=== PATIENT | female | born 1950 | race Caucasian/White ===

== ENCOUNTER 2020-06-03 08:37 | Outpatient (NON) | payer MEDICARE, SELFPAY ==
[2020-06-03 19:00] LABS: SARS-CoV-2 RNA PCR Negative
== END 2020-06-03 08:38 ==
PROVIDERS: PCP Internal Medicine; Visit Provider Internal Medicine
DX: Z20.828 Contact with and (suspected) exposure to other viral communicable diseases (principal); R05 Cough
CPT/HCPCS: 87635; C9803; U0003

== ENCOUNTER → 2021-09-15 02:42 | Outpatient (CLI) | payer MEDICARE, SELFPAY ==
[2021-09-15 15:25] LABS: Influenza A QL RT-PCR Negative (Negative); Influenza B QL RT-PCR Negative (Negative); SARS-CoV-2 RNA PCR Negative
== END ==
PROVIDERS: PCP Internal Medicine; Visit Provider Internal Medicine
DX: R68.89 Other general symptoms and signs (principal); Z20.822 Contact with and (suspected) exposure to COVID-19
CPT/HCPCS: 87502; C9803; U0003; U0005

== ENCOUNTER → 2022-10-11 10:15 | Outpatient (CLI) | payer MEDICARE, SELFPAY ==
--- NOTE | ~2022-10-11 | XR_ITS ---
XR hip RT min 2V 10/11/2022 10:29 Indication: Right hip pain. No acute injury. Procedure: 2 views right hip Comparison: No prior studies for comparison. Findings: There is moderate osteoarthritis of the right hip. No fracture, subluxation or dislocation. There are pelvic phleboliths. No foreign bodies. Impression: 1: Moderate osteoarthritis of the right hip. Reviewed, dictated and finalized at location B. MOTIVE TEACHER Impression: 1: Moderate osteoarthritis of the right hip.
== END ==
PROVIDERS: PCP Family Medicine; Visit Provider Family Medicine
DX: M25.551 Pain in right hip (principal); M16.11 Unilateral primary osteoarthritis, right hip
CPT/HCPCS: 73502

== ENCOUNTER 2022-12-15 00:42 | Day surgery (SDC) | payer MEDICARE, SELFPAY ==
--- NOTE | 2022-12-14 12:00 | WPDANESEPPF ---
Anes - Initial Pre Proc Eval Procedure: Operation Date: 12/15/22 08:30 Proposed Procedures p Screening Colonoscopy - Ino Coronado MD Date/Time: 12/14/22 12:00 Surgeon: Ino Coronado MD Pre Op Diagnosis: neoplasm screening Patient Data Age: 72 Gender: F Height: 1.65 m Weight: 54.5 kg Allergies Allergy/AdvReac Type Severity Reaction Status Date / Time No Known Allergies Allergy Verified 12/15/22 07:24 Home Medications Medication Instructions Recorded Confirmed Type tretinoin 0.1 % topical cream 1 applic topical QHS #45 grams 10/08/21 12/15/22 Rx lovastatin 20 mg tablet 20 mg PO QPM #90 tabs 01/07/22 12/15/22 Rx bimatoprost 0.03 % eye drops 1 drp EACH EYE DAILY #5 mL 06/11/22 12/15/22 Rx doxycycline monohydrate 50 mg 50 mg PO DAILY #90 caps 09/06/22 12/15/22 Rx capsule sumatriptan succinate 100 mg tablet 100 mg PO ONCE PRN Migraine 10/11/22 12/15/22 History Headache cholecalciferol (vitamin D3) 25 25 mcg PO DAILY 10/25/22 12/15/22 History mcg (1,000 unit) tablet (Vitamin D3) dicyclomine 10 mg capsule 10 mg PO TID PRN Abdominal Pain 10/25/22 12/15/22 History multivitamin with minerals-folic 1 tablet PO DAILY 10/25/22 12/15/22 History acid 0.4 mg tablet sennosides 8.6 mg tablet (senna) 8.6 mg PO BID 10/25/22 12/15/22 History Patient hx anesthesia problems: none Family hx anesthesia problems: none Results Review: All pre-operative results and documents have been reviewed as part of the pre-operative evaluation. [facility] Past Medical History Medical History Hyperlipidemia LDL goal <130 Postmenopausal Surgical History Surgical History History of tonsillectomy History of tubal ligation Family History Family History Sibling Patient's sister is in good health Family history of cardiovascular disease Father Family history of lung cancer Mother Family history of lung cancer Other , Patient son, possible stomach anuerysm. No problems noted. Social History Social History Smoking status: Never smoker Alcohol intake: current Alcohol use details: occasional Substance use: never Substance use type: does not use Lack of Transportation: No Lack of Food: Never True Current Housing: I Have Housing Concerned About Future Housing: No Difficulty Paying Gas/Electric Bills: No Difficulty Paying for Meds: No Currently Unemployed: No Education: Master's Degree or Higher Difficulty w/ Childcare or Family Care: No Living arrangements: with family Gender identity (if verbalized by the patient): Female Spiritual care concerns: No Anes - Eval Final PreProcedure Day of Procedure 12/14/22 12:00 Patient weight: normal Heart: regular rate and rhythm Lungs: clear to auscultation and normal air movement Airway: Mallampati scale class II Neurological: alert and oriented Last oral intake: >/= 8 hours ASA classification: II Emergent: no Anesthetic plan: proceed Anesthesia type and monitoring: general GIVS and standard monitoring Results Review: All pre-operative results and documents have been reviewed as part of the pre-operative evaluation. Informed Consent: The patient's anesthetic plan and its attendant risks and benefits were discussed with the patient/family/POA. Questions were solicited and answers provided to the satisfaction of the patient/family/POA.
--- NOTE | 2022-12-14 15:24 | PM.HPGS ---
History of Present Illness History of Present Illness Consent: Risks, benefits, and alternatives have been discussed and questions answered. Patient agrees to proceed with procedure. Chief complaint: neoplasm screening Narrative: Umm Rodriguez is a 72 year old female who was referred for colon cancer screening. I performed her last colonoscopy 10 years ago. Review of Systems Review of Systems: All systems reviewed & are unremarkable except as noted in HPI and below PMFSH Past Medical History Medical History Hyperlipidemia LDL goal <130 Postmenopausal Surgical History Surgical History History of tonsillectomy History of tubal ligation Family History Family History Sibling Patient's sister is in good health Family history of cardiovascular disease Father Family history of lung cancer Mother Family history of lung cancer Other , Patient son, possible stomach anuerysm. No problems noted. Social History Social History Smoking status: Never smoker Alcohol intake: current Alcohol use details: occasional Substance use: never Substance use type: does not use Lack of Transportation: No Lack of Food: Never True Current Housing: I Have Housing Concerned About Future Housing: No Difficulty Paying Gas/Electric Bills: No Difficulty Paying for Meds: No Currently Unemployed: No Education: Master's Degree or Higher Difficulty w/ Childcare or Family Care: No Living arrangements: with family Gender identity (if verbalized by the patient): Female Spiritual care concerns: No Meds Home Medications and Allergies Home Medications Medication Instructions Recorded Confirmed Type tretinoin 0.1 % topical cream 1 applic topical QHS #45 grams 10/08/21 12/15/22 Rx lovastatin 20 mg tablet 20 mg PO QPM #90 tabs 01/07/22 12/15/22 Rx bimatoprost 0.03 % eye drops 1 drp EACH EYE DAILY #5 mL 06/11/22 12/15/22 Rx doxycycline monohydrate 50 mg 50 mg PO DAILY #90 caps 09/06/22 12/15/22 Rx capsule sumatriptan succinate 100 mg tablet 100 mg PO ONCE PRN Migraine 10/11/22 12/15/22 History Headache cholecalciferol (vitamin D3) 25 25 mcg PO DAILY 10/25/22 12/15/22 History mcg (1,000 unit) tablet (Vitamin D3) dicyclomine 10 mg capsule 10 mg PO TID PRN Abdominal Pain 10/25/22 12/15/22 History multivitamin with minerals-folic 1 tablet PO DAILY 10/25/22 12/15/22 History acid 0.4 mg tablet sennosides 8.6 mg tablet (senna) 8.6 mg PO BID 10/25/22 12/15/22 History Allergies Allergy/AdvReac Type Severity Reaction Status Date / Time No Known Allergies Allergy Verified 12/15/22 07:24 Exam Resp: Auscultation: clear to auscultation bilaterally Cardio: Rate: regular rate Rhythm: regular rhythm GI: GI Palp: Yes Soft to palpation and No Tenderness to palpation present (GI) Assessment and Plan Assessment and plan (1) Colon cancer screening: Code(s): Z12.11 - Encounter for screening for malignant neoplasm of colon Status: Acute Assessment and Plan: Colonoscopy with possible biopsy or polypectomy or cautery or injection of substances.
[2022-12-15 07:15] VITALS: BP 148/67; PULSE 62; RESP 16; TEMP 36.4; O2SAT 100; BMI 19.9
[2022-12-15] MEDS: LACTATED RINGERS 1,000 ML 150 ML IV CONT (07:37)
[2022-12-15 08:31] VITALS: BP 110/67; PULSE 63; RESP 19; O2SAT 100
[2022-12-15 08:41] VITALS: BP 120/64; PULSE 58; RESP 20; O2SAT 100
[2022-12-15 08:51] VITALS: BP 148/81; PULSE 54; RESP 19; O2SAT 100
== END 2022-12-15 09:02 | disposition home or self-care (01) ==
PROVIDERS: PCP Family Medicine; Visit Provider Internal Medicine Gastroenterology
PROC: 0DJD8ZZ Inspection of Lower Intestinal Tract, Via Natural or Artificial Opening Endoscopic (ICD-10-PCS; CPT 45378; principal; 2022-12-15 08:30)
DX: Z12.11 Encounter for screening for malignant neoplasm of colon (principal); K64.8 Other hemorrhoids; K63.89 Other specified diseases of intestine; E78.5 Hyperlipidemia, unspecified
CPT/HCPCS: G0121; J2704; J7120

== ENCOUNTER 2023-07-26 08:28 | Emergency (ER) | payer MEDICARE, SELFPAY ==
--- NOTE | ~2023-07-26 | XR_ITS ---
XR finger 2nd LT min 2V 07/26/2023 08:52 Indication: Left second finger pain Procedure: 4 views left second finger Comparison: No prior studies for comparison. Findings: No fracture, subluxation or dislocation. There is anatomic alignment. No focal soft tissue abnormality. No foreign bodies. Impression: 1: No acute bone or joint abnormality. Reviewed, dictated and finalized at location D. ME PLATER Impression: 1: No acute bone or joint abnormality.
[2023-07-26 08:39] VITALS: BP 159/80; PULSE 54; RESP 16; TEMP 36.6; O2SAT 100
--- NOTE | 2023-07-26 09:26 | ED.GENADULT ---
HPI - General Adult General Chief complaint: Extremity Injury, Upper Stated complaint: Injured Finger Source: patient Mode of arrival: ambulatory Limitations: no limitations History of Present Illness HPI narrative: Patient presents for evaluation of an injury to left index finger that occurred just under two weeks ago. She states she was using a hammer and accidentally hit her left index finger with the hammer. she reports swelling and discomfort to the left index finger. No numerical rating to the pain but states the pain is throbbing. She has a discoloration noted to the left index finger. She is right hand dominant. She tried taking tylenol and 1/2 tablet hydrocodone for her pain. Related Data Home Medications Medication Instructions Recorded Confirmed sumatriptan succinate 100 mg tablet 100 mg PO ONCE PRN Migraine 10/11/22 04/12/23 Headache cholecalciferol (vitamin D3) 25 25 mcg PO DAILY 10/25/22 04/12/23 mcg (1,000 unit) tablet (Vitamin D3) dicyclomine 10 mg capsule 10 mg PO TID PRN Abdominal Pain 10/25/22 04/12/23 multivitamin with minerals-folic 1 tablet PO DAILY 10/25/22 04/12/23 acid 0.4 mg tablet sennosides 8.6 mg tablet (senna) 8.6 mg PO BID 10/25/22 04/12/23 Allergies Allergy/AdvReac Type Severity Reaction Status Date / Time No Known Allergies Allergy Verified 04/12/23 10:23 Review of Systems Review of Systems: CONSTITUTIONAL: Denies fever, chills, or sweats. EYES: Denies visual changes, redness, or discharge. ENT: Denies rhinorrhea, congestion, sore throat, or otalgia. CARDIOVASCULAR: Denies chest pain, palpitations, or edema. RESPIRATORY: Denies cough or dyspnea. GASTROINTESTINAL: Denies abdominal pain, nausea, vomiting, or diarrhea. GENITOURINARY: Denies dysuria or hematuria. SKIN: Reports swelling to the the skin surrounding the nail plate of the left index finger. Reports discoloration of the nail plate of the left index finger. MUSCULOSKELETAL: Denies back pain, joint pain, or myalgia. NEUROLOGIC: Denies headache, numbness, dizziness, or weakness. PSYCHIATRIC: Denies anxiety or depression. [facility] Past Medical History Medical History Hyperlipidemia LDL goal <130 Postmenopausal Surgical History Surgical History History of tonsillectomy History of tubal ligation Family History Family History Sibling Patient's sister is in good health Family history of cardiovascular disease Father Family history of lung cancer Mother Family history of lung cancer Other , Patient son, possible stomach anuerysm. No problems noted. Social History Social History Smoking status: Never smoker Alcohol intake: current Alcohol use details: occasional Substance use: never Substance use type: does not use Lack of Transportation: No Lack of Food: Never True Current Housing: I Have Housing Concerned About Future Housing: No Difficulty Paying Gas/Electric Bills: No Difficulty Paying for Meds: No Currently Unemployed: No Education: Master's Degree or Higher Difficulty w/ Childcare or Family Care: No Living arrangements: with family Gender identity (if verbalized by the patient): Female Spiritual care concerns: No Exam Narrative: GENERAL: Well-appearing, well-nourished, and in no acute distress. HEAD: Normocephalic, atraumatic. EYES: PERRLA and EOMI. ENT: Nares clear, no rhinorrhea or epistaxis. Mucous membranes moist. Oropharynx without tonsillar hypertrophy exudate or other lesions. Bilateral TMs pearly posada nonbulging NECK: Supple. No adenopathy or masses. No carotid bruits or JVD CHEST: Clear to auscultation. No respiratory distress. No wheezes rales or rhonchi HEART: Re
== END 2023-07-26 09:27 | disposition home or self-care (01) ==
PROVIDERS: Emergency Provider Nurse Practitioner; PCP Family Medicine
DX: L03.012 Cellulitis of left finger (principal); S60.122A Contusion of left index finger with damage to nail, initial encounter; W27.8XXA Contact with other nonpowered hand tool, initial encounter; I10 Essential (primary) hypertension
CPT/HCPCS: 10160; 73140; 99213; G0463

== ENCOUNTER 2023-09-14 07:44 | Outpatient (CLI) | payer MEDICARE, SELFPAY ==
--- NOTE | ~2023-09-14 | MM_ITS ---
EXAMINATION: MM screening gabrielle BI w yanet HISTORY: Screening mammogram TECHNIQUE: Craniocaudal and mediolateral oblique 3-D tomosynthesis images were obtained and synthetic 2-D images were generated. CAD analysis was submitted and interpreted. COMPARISON: No prior mammogram is available for comparison at this institution. BREAST PARENCHYMAL COMPOSITION: There are scattered areas of fibroglandular density. FINDINGS: No suspicious mass, calcification, or architectural distortion are identified in either henry ast to suggest malignancy. IMPRESSION: 1. No mammographic evidence of malignancy. 2. Recommend routine screening mammography in one year. BI-RADS Category 1: Negative Reviewed, dictated and finalized at location A. ON PLANT GRINDER
--- NOTE | ~2023-09-14 | DEXA_ITS ---
Bone Density Report Name: ARYAN COBB Age: 73 Sex: Female Ethnicity: White Date of : 1950 Indication: postmenopausal; screening for osteoporosis; Referring Provider: HAYDEE COUGHLIN Study: Bone densitometry was performed. Exam Date: September 14, 2023 Accession number: [id number] Bone Density: Region BMD T-score Z-score Classification AP Spine(L1-L4) 0.916 -1.2 1.0 Osteopenia Femoral Neck (Left) 0.621 -2.0 -0.2 Osteopenia Total Hip (Left) 0.744 -1.6 0.0 Osteopenia Femoral Neck (Right) 0.713 -1.2 0.6 Osteopenia Total Hip (Right) 0.715 -1.9 -0.3 Osteopenia Total Hip Mean 0.730 -1.8 -0.2 Osteopenia World Health Organization criteria for BMD impression classify patients as: Normal (T-score at or above -1.0), Osteopenia (T-score between -1.0 and -2.5), or Osteoporosis (T-score at or below -2.5). 10-year Fracture Risk(1): Major Osteoporotic Fracture 11% Hip Fracture 2.4% Reported Risk Factors: [place] (), Neck BMD=0.621, BMI=20.0 (1) FRAX(R) Version 3.08. Fracture probability calculated for an untreated patient. Fracture probability may be lower if the patient has received treatment. Clinical Information Provided by Patient: Has used the following medications: Vitamin D, Calcium Patient maximum height was 65.5 Menopause Age: 47 Drinks caffeinated beverages Onset of menses at age 13 Number of children 2 Impression: The patient has low bone mass, based on the Left Femoral Neck T-score. The patient has an estimated ten-year risk of hip fracture of 2.4% and an estimated ten-year risk of major fracture of 11%, based on the WHO FRAX algorithm. Discussion: BONE DENSITY IS LOW AT ONE OR MORE SKELETAL SITES. This patient's lowest T-score is low at one or more skeletal sites. It meets the World Health Organization's (WHO) criteria for ?low bone mass? (T-score between -1.0 and -2.5). The patient's 10-year risk of fracture as calculated by FRAX is less than the threshold where pharmacological therapy is recommended by the National Osteoporosis Foundation (NOF). However, all treatment decisions require clinical judgment and consideration of individual patient factors, including patient preferences, comorbidities, previous drug use, risk factors not captured in the FRAX model (e.g., frailty, falls, vitamin D deficiency, increased bone turnover, interval significant decline in bone density) and possible under or overestimation of fracture risk by FRAX. The patient should follow a healthful lifestyle (good nutrition with adequate calcium and vitamin D, and appropriate weight-bearing exercise). Follow-Up: Consider repeating this study in 2 to 3 years to reassess this patient's status, or sooner if there is some new clinical indication. Reported by: [facility] on 09/14/2023 8:18:00 AM
== END 2023-09-14 07:45 | disposition home or self-care (01) ==
LOC: ANHIMG 07:50
PROVIDERS: PCP Family Medicine; Visit Provider Family Medicine
DX: Z12.31 Encounter for screening mammogram for malignant neoplasm of breast (principal); Z78.0 Asymptomatic menopausal state; M85.89 Other specified disorders of bone density and structure, multiple sites
CPT/HCPCS: 77063; 77067; 77080

== ENCOUNTER 2024-10-08 15:07 | Outpatient (CLI) | payer MEDICARE, SELFPAY ==
--- NOTE | ~2024-10-08 | MM_ITS ---
EXAMINATION: MM screening gabrielle BI w yanet HISTORY: Screening TECHNIQUE: Craniocaudal and mediolateral oblique 3-D tomosynthesis images were obtained and synthetic 2-D images were generated. CAD analysis was submitted and interpreted. COMPARISON: 09/14/2023 BREAST PARENCHYMAL COMPOSITION: Not dense: There are scattered areas of fibroglandular density. FINDINGS: There is no evidence of suspicious mass, calcification, or architectural distortion to sugg est malignancy in either breast. There has been no suspicious interval change. IMPRESSION: 1. No mammographic evidence of malignancy. 2. Recommend routine screening mammography in one year. BI-RADS Category 1: Negative Reviewed, dictated and finalized at location B. PER MAKER
--- OUTSIDE RECORDS SUMMARY | 2024-10-08 17:52 | XMS_ITS | Patient Health Summary ---
Author Organization [facility] Address [address] [place] [address] Care Team Providers Care Bulk Tank Car Unloader Name Role Phone Pb Irving MD Primary Care Provider [phone] Note from [facility],non-owned Affiliates and Associated Physician Practices is amultiple site organization consisting of ambulatory clinics and hospital sitesin [place], [place], [place] and [place]. This disclosure is being madepursuant to the Care Everywhere program and may not contain all information available regarding this patient. Last updated 18.[facility] Allergies No known active allergies Immunizations * FLU VACCINE QUAD IIV4 PF ID(Given 05/25/2016) * INFLUENZA VACCINE, HIGH-DOSE, QUADR. (FLUZONE HIGH-DOSE QUADRIVALENT; 65Y+), 0.7 ML (HD-IIV4)(Given 05/11/2018) Social History Tobacco Use Types Packs/Day Years Used Date Smoking Tobacco: Never Assessed Sex and Gender Information Value Date Recorded Sex Assigned at Not on file Gender Identity Not on file Sexual Orientation Not on file Care Teams Bulk Tank Car Unloader Relationship Specialty Start Date End Date Pb Irving MD [address] [place] [address] PCP - General Internal Medicine 05/25/16
--- OUTSIDE RECORDS SUMMARY | 2024-10-08 17:52 | XMS_ITS | Clinical Summary ---
Author Organization [facility] Address [address] [place] [address] Care Team Providers Care Audio Visual Coordinator Name Role Phone Pb Irving MD Primary Care Provider [phone] Source Comments [facility],non-owned Affiliates and Associated Physician Practices is amultiple site organization consisting of ambulatory clinics and hospital sitesin [place], [place], [place] and [place]. This disclosure is being madepursuant to the Care Everywhere program and may not contain all information available regarding this patient. Last updated 18.[facility] Allergies No known active allergies Immunizations Name Administration Dates Next Due FLU VACCINE QUAD IIV4 PF ID 05/25/2016 INFLUENZA VACCINE, HIGH-DOSE , QUADR. (FLUZONE HIGH-DOSE QUADRIVALENT; 65Y+), 0.7 ML (HD-IIV4) 05/11/2018 Social History Tobacco Use Types Packs/Day Years Used Date Smoking Tobacco: Never Assessed Sex and Gender Information Value Date Recorded Sex Assigned at Not on file Gender Identity Not on file Sexual Orientation Not on file Plan of Treatment Health Maintenance Due Date Last Done Comments BONE DENSITY TESTING 1950 COLOGUARD (AGES 45-75) - COL ON CA SCREENING 1950 COLON MONITORING 1950 COLONOSCOPY - COLON CA SCREENING 1950 CT COLONOGRAPHY - COLON CA SCREENING 1950 Colorectal Cancer Screening 1950 FIT - COLON CA SCREENING 1950 FLEX SIG - COLON CA SCREENING 1950 LIPID TESTING 1950 MAMMOGRAM 1950 MEDICARE AWV 12 MONTHS 1950 HEPATITIS C SCREENING 05/25/1970 DTAP/TDAP/TD VACCINES (1 - Tdap) 1971 PNEUMOCOCCAL VACCINE 50+ (1 of 1 - PCV) 2002 ZOSTER VACCINE (1 of 2) 2002 COVID-19 VACCINE (1 - 2023-2 5 season) 2024 INFLUENZA VACCINE (#1) 2024 8, 05/25/2016 DEPRESSION SCREENING 08/22/2024 Respiratory Syncytial Virus (RSV) Vaccine Pt: or over 60 yrs (1 - 1-dose 75+ series) 2027 HEPATITIS B VACCINE Aged Out No longe r eligible based on patient's age to complete this topic HIB VACCINE Aged Out No longer eligi ble based on patient's age to complete this topic HPV VACCINE Aged Out No longer eligi ble based on patient's age to complete this topic MENINGOCOCCAL (Group B) VACCINE Aged Out No longer eligible b ased on patient's age to complete this topic MENINGOCOCCAL VACCINE Aged Out No leisa lesli eligible based on patient's age to complete this topic Care Teams Audio Visual Coordinator Relationship Specialty Start Date End Date Pb Irving MD [address] [place] [address] PCP - General Internal Medicine 05/25/16
--- OUTSIDE RECORDS SUMMARY | 2024-10-08 17:52 | XMS_ITS | Referral Summary ---
Author Organization [facility] Address [address] [place] [address] Care Team Providers Care Dredge Mate Name Role Phone Pb Irving MD Primary Care Provider [phone] [facility],non-owned Affiliates and Associated Physician Practices is amultiple site organization consisting of ambulatory clinics and hospital sitesin [place], [place], [place] and [place]. This disclosure is being madepursuant to the Care Everywhere program and may not contain all information available regarding this patient. Last updated 18.[facility] Allergies No known active allergies Immunizations Name [...] Orientation Not on file Plan of Treatment Not on file Care Teams Dredge Mate Relationship Specialty Start Date End Date Pb Irving MD [address] [place] [address] PCP - General Internal Medicine 05/25/16
--- OUTSIDE RECORDS SUMMARY | 2024-10-08 17:53 | XMS_ITS | Clinical Summary ---
Author Organization [facility] Address [address] [place] [address] Care Team Providers Care Inspector Floor Name Role Phone KevJaime csota Primary Care Provider [phone] Allergies No known active allergies Medications lovastatin (MEVACOR) 20 mg tablet TK 1 T PO QHS 3 8 Active senna (SENNA) 8.6 mg tablet Active metoprolol XL (TOPROL-XL) 50 mg 24 hr tablet TK 1/2 T PO QD 11 9 Active tretinoin (RETIN-A) 0.1 % cream Apply sparingly to affected areas on face once daily at bedtime 45 g 3 0 Active SUMAtriptan (IMITREX) 100 mg tablet TAKE 1 TABLET(100 MG) BY MOUTH 1 TIME FOR UP TO 1 DOSE NEEDED FOR MIGRAINE 9 tablet 1 0 Active metroNIDAZOLE (METROGEL) 0.75 % gelIndications:A cne Rosacea Apply topically to face once daily 45 g 11 0 Active bimatoprost (LATISSE) 0.03 % ophthalmic solution APPLY 1 DROP ON APPLICATOR AND APPLY TO SKIN OF UPPER EYELID AT BASE OF EYELASHES AT BEDTIME 5 mL 1 Active Additional Information Patient not taking.Reported on 06/26/2024 doxycycline monohydrate (MONODOX) 50 mg capsule TAKE 1 CAPSULE(50 MG) BY MOUTH DAILY 30 capsule 2 2 Active Active Problems Problem Noted Date Diagnosed Date Actinic keratosis 10/17/2017 Seborrheic eczema 10/17/2017 Senile hyperkeratosis 03/14/2017 Angioma 03/31/2016 Multiple benign melanocytic nevi 03/31/2016 Neoplastic disease 03/31/2016 Skin wrinkling 03/31/2016 Sebaceous cyst 12/09/2014 Rosacea 10/30/2012 Surgical History Surgery Date Site/Laterality Comments CT DELIVERY ONLY Section - (Added by TW Conv) CT TONSILLECTOMY PRIMARY/SEC ONDARY <AGE 12 Tonsillectomy - (Added by TW Conv) Medical History Medical History Date Comments Hearing loss Right Ear Deafne ss - (Added by TW Conv) Family History Medical History Relation Name Comments Heart disease Father Heart Disease - (Added by TW Conv) Lung cancer Father Malignant Lung Neoplasm - (Added by TW Conv) Heart disease Mother Heart Disease - (Added by Conv) Lung cancer Mother Malignant Lung Neoplasm - (Added by Conv) Relation Name Status Comments Father Mother Social History Tobacco Use Types Packs/Day Years Used Date Smoking Tobacco: Never Alcohol Use Standard Drinks/Week Comments Never 0 (1 standard drink = 0.6 oz pur e alcohol) AUDIT-C Answer Date Recorded Q1: How often do you have a drink containing alcohol? Never 06/26/2024 Q2: How many drinks containi ng alcohol do you have on a typical day when you are drinking? Patient does not drink Q3: How often do you have si x or more drinks on one occasion? Never 06/26/2024 Exercise Vital Sign Answer Date Recorde d Days of Exercise per Week 3 days 2018 Minutes of Exercise per Session 60 min 07/18/2019 Comments No Sex and Gender Information Value Date Recorded Sex Assigned at Not on file Legal Sex Female 9:52 PM CORPORATE AIRCRAFT MECHANIC Gender Identity Female 09/12/2020 5:20 AM CORPORATE AIRCRAFT MECHANIC Sexual Orientation Straight 09/12/2020 5: 20 AM CORPORATE AIRCRAFT MECHANIC Obstetrics History Para Term AB IAB SAB Ectopic Multiple Livin g Live Births 2 2 2 1 2 Date Outcome GA Total Labor Labor/2nd/3rd Weight Sex Type Anes PTL Yesica A1 A5 Name Clin Term CS-Un spec Living Term CS-Un spec Last Filed Vital Signs Vital Sign Reading Time Taken Comments Blood Pressure 174/82 06/26/2024 11:54 AM CORPORATE AIRCRAFT MECHANIC Pulse 52 03/24/2015 10:07 AM CDT Temperature 36.3 C (97.4 F) 12/12/2020 11:26 AM CDT Respiratory Rate - - Oxygen Saturation - - Inhaled Oxygen Concentration - - Weight 54.9 kg (121 lb) 06/26/2024 11:19 AM CORPORATE AIRCRAFT MECHANIC Height 166.1 cm (5' 5.4 ) 06/26/2024 11:19 AM CS T Body Mass Index 19.89 06/26/2024 11:19 AM CORPORATE AIRCRAFT MECHANIC Plan of Treatment Health Maintenance Due Date Last Done Comments Colon Cancer Screening-Colonoscopy 1950 Depression Screening 1950 Fall Risk Assessment 1950 Hepatitis C Screening 1950 DTaP/Tdap/Td Vaccine (1 - Tdap) 1963 Hepatitis B Screening 1970 Zoster Vaccine (2 of 2) 06/04/2019 04/09/2019 Osteoporosis Screening-Bone Density Scan 08/29/2021 08/29/2019, 01/23/2014 Breast Cancer Screening-Mammogram 05/20/2023 05/20/2022, 04/08/2021, 02/09/2019, Additional history exists Influenza Vaccine (#1) 2024 9, 05/11/2018, 05/22/2017, Additional history exists Well Visit 65+ 06/26/2025 06/26/2024 Pneumococcal vaccine 65+ Completed 10/10/2018, 08/23 Procedures Procedure Name Priority Date/Time Associated Diagnosis Comments SCREENING MAMMOGRAM BILATERAL W VITALIY Schedule Routine, Read Routine (OP Routine) 05/20/2022 1:29 PM CDT Screening mammogram, encounter for DEXA AXIAL SKELETON BONE DENSITY 1 OR MORE SITES Schedule Routine, Read Routine (OP Routine) 08/29/2019 11:27 AM CORPORATE AIRCRAFT MECHANIC Post-menopausal from Last 3 Months or Most Recently Relevant to Health Maintenance Results * Screening Mammogram Bilateral W Vitaliy (05/20/2022 1:29 PM CDT) Anatomical Region Laterality Modality Breast Bilateral Mammography Narrative 05/21/2022 2:02 PM CDT Mammogram Technique: Bilateral Digital Breast Tomosynthesis, Bilateral C-view 2D Screening mammogram. Views obtained: bilateral craniocaudal and bilateral mediolateral oblique. Computer Aided Detection was performed. Mammogram Findings: The present examination has been compared to prior imaging studies performed at [facility] on 02/06/2018, 02/09/2019 and 04/08/2021. There are scattered areas of fibroglandular density. There is no suspicious abnormality in either breast. Impression: There is no mammographic evidence of malignancy. Annual screening mammography is recommended. OVERALL FINAL ASSESSMENT: BI-RADS CATEGORY 1: Negative. Procedure Note Zoie Zhang MD - 05/21/2022 Mammogram Technique: Bilateral Digital Breast Tomosynthesis, Bilateral C-view 2D Screening mammogram. Views obtained: bilateral craniocaudal and bilateral mediolateral oblique. Computer Aided Detection was performed. Mammogram Findings: The present examination has been compared to prior imaging studies performed at [facility] on 02/06/2018, 02/09/2019 and 04/08/2021. There are scattered areas of fibroglandular density. There is no suspicious abnormality in either breast. Impression: There is no mammographic evidence of malignancy. Annual screening mammography is recommended. OVERALL FINAL ASSESSMENT: BI-RADS CATEGORY 1: Negative. us Self Screening Mammogram IMG MAMMO PROCEDURES Fi nal Result * Dexa Axial Skeleton Bone Density 1 or 2 Site (08/29/2019 11:27 AM CORPORATE AIRCRAFT MECHANIC) Anatomical Region Laterality Modality Body N/A Radiographic Nazia ging Narrative 08/29/2019 2:13 PM CORPORATE AIRCRAFT MECHANIC Patient Name: Umm Rodriguez Date of : 1950 Date of scan: 08/29/2019 Bone mineral density was performed on a [employer] Discovery Densitometer. Machine Cross-calibration and Precision studies have been performed with a least significant change of 0.024 g/cm at the spine, 0.020 g/cm at the total proximal femur, and 0.014g/cm at the forearm. HISTORY: This is a 69 y.o. postmenopausal female with a history of low bone mass. Currently on treatment with vitamin D. History of tobacco use: Social History Tobacco Use Smoking Status Never Smoker INDICATIONS: Menopause status and history of low bone mass. FINDINGS: BONE MINERAL DENSITY OF THE LUMBAR SPINE Bone Mineral Density (BMD) of the lumbar spine was measured from L1-L4 and the average density was calculated to be 0.915 gm/cm. This corresponds to a T-score standard deviations from the mean of young adults of -1.2. When compared to the previous study of 01/23/2014 there has been a measured -0.020 gm/cm -2.1 % decrease which is considered significant. BONE MINERAL DENSITY OF THE PROXIMAL FEMUR Bone Mineral Density (BMD) of the left hip total was found to be 0.792 gm/cm2. This corresponds to a T-score standard deviations from the mean of young adults of -1.2. Femoral neck is 0.668 gm/cm2 with a T-score Of -1.6. When compared to the previous study of 01/23/2014 there has been a measured -0.049 gm/cm -5.8 % decrease which is considered significant. SUMMARY: Bone mineral density shows evidence of low bone mass in the spine and hip and moderately increased fracture risk. There has been significant decrease in bone mineral density since previous measurement. ADDITIONAL COMMENTS: If the patient has a history of a fragility fracture, a fracture that occurred with trauma equivalent to a fall from a standing position or less, then the diagnosis is osteoporosis. The risk of osteoporotic fracture increases approximately 2-fold for each 1.0 SD decrease in T-score. However, low bone density is not the only risk factor for fracture. Other factors include patient s age, previous osteoporotic fracture or prior fracture as an adult, loss of height of greater than 2 inches, corticosteroid use, risk of falling, risk of injury, and family history of osteoporosis. Not everyone with low bone mineral density has osteoporosis. Osteomalacia and other metabolic bone disorders should also be considered where indicated. Patients who have osteoporosis should be evaluated for specific diseases and conditions (secondary causes) that may cause or contribute to bone loss. Consider repeating this study in 1-2 years to assess the patient s response to treatment, if applicable. It is recommended that any follow up exam be performed on the same machine if possible for better accuracy. DEFINITIONS: Osteoporosis: BMD at or below -2.5 T-score Osteopenia (low bone mass): BMD between -1.0 and-2.5 T-score. The Bone Health Program adopts the following WHO definitions: Osteoporosis: BMD below -2.5 S.D. as compared to the BMD of young normal adults. Osteopenia or Low Bone Mass: BMD between -1.0 and -2.5 S.D. below the BMD of young normal adults. Normal Bone Density: BMD equal to or greater than -1.0 S.D. as compared to the BMD of young normal adults. References: 1) Luis, Annals of Internal Medicine 114(11): 919-923 (1990) 2) Danielle, Lancet 341 : 72-75 (1992) 3) Ankit, Journal Bone and Mineral Research 7(6): 633-8 (1991) 4) Alfredo, Journal Bone and Mineral Research 8(10):1227-33 (1992) The history and data sections of the bone mineral density scan were prepared by RT Ash who is accredited by the International Society of Clinical Densitometry. The overall patient assessment and scan interpretation were performed by Parth Castro M.D. who is certified by the International Society of Clinical Densitometry. [id number] us Mirakalia Conrad MD IMG DXA PROCED URES Final Result from Last 3 Months or Most Recently Relevant to Health Maintenance Insurance MEDICARE [facility] MEDICARE Address: [facility] [address] [place] [address] [facility] MEDICARE MEDICARE [facility] MEDICARE Address: [address] [address] [place] [address] Care Teams Inspector Floor Relationship Specialty Start Date End Date Jaime Carlos DO PCP - General Family Medicine 04/01/22
--- OUTSIDE RECORDS SUMMARY | 2024-10-08 17:53 | XMS_ITS | Referral Summary ---
Author Organization [facility] Address [address] [place] [address] Care Team Providers Care Blast Furnace Auxiliaries Supervisor Name Role Phone KevJaime costa Primary Care Provider [phone] Allergies No known active allergies Medications lovastatin [...] wrinkling 03/31/2016 Sebaceous cyst 12/09/2014 Rosacea 10/30/2012 Social History Tobacco Use Types Packs/Day Years [...] on file Legal Sex Female 9:52 PM FUEL YARD OPERATOR Gender Identity Female 09/12/2020 5:20 AM FUEL YARD OPERATOR Sexual Orientation Straight 09/12/2020 5: 20 AM FUEL YARD OPERATOR Last Filed Vital Signs Vital Sign Reading Time Taken Comments Blood Pressure 174/82 06/26/2024 11:54 AM FUEL YARD OPERATOR Pulse 52 03/24/2015 10:07 AM CDT Temperature 36.3 C (97.4 F) 12/12/2020 11:26 AM CDT Respiratory Rate - - Oxygen Saturation - - Inhaled Oxygen Concentration - - Weight 54.9 kg (121 lb) 06/26/2024 11:19 AM FUEL YARD OPERATOR Height 166.1 cm (5' 5.4 ) 06/26/2024 11:19 AM CS T Body Mass Index 19.89 06/26/2024 11:19 AM FUEL YARD OPERATOR Plan of Treatment Not on file Procedures Procedure Name Priority Date/Time Associated Diagnosis Comments SCREENING MAMMOGRAM BILATERAL W VITALIY Schedule Routine, Read Routine (OP Routine) 05/20/2022 1:29 PM CDT Screening mammogram, encounter for DEXA AXIAL SKELETON BONE DENSITY 1 OR MORE SITES Schedule Routine, Read Routine (OP Routine) 08/29/2019 11:27 AM FUEL YARD OPERATOR Post-menopausal from Last 3 Months or Most [...] compared to prior imaging studies performed at [facility] on 02/06/2018, 02/09/2019 and 04/08/2021. There [...] compared to prior imaging studies performed at [facility] on 02/06/2018, 02/09/2019 and 04/08/2021. There [...] 1 or 2 Site (08/29/2019 11:27 AM FUEL YARD OPERATOR) Anatomical Region Laterality Modality Body N/A Radiographic Nazia ging Narrative 08/29/2019 2:13 PM FUEL YARD OPERATOR Patient Name: Umm Rodriguez Date of : 1950 Date of scan: 08/29/2019 Bone mineral density was performed on a Hol[employer] Discovery Densitometer. Machine Cross-calibration and Precision studies [...] of Internal Medicine 114(11): 919-923 (1990) 2) Santos, Lancet 341 : 72-75 (1992) 3) Ankit, [...] by the International Society of Clinical Densitometry. [id number] us Mirakalia Conrad MD IM DXA PROCED URES Final Result from Last 3 Months or Most Recently Relevant to Health Maintenance [place] [address] [address] [place] [address] MEDICARE [facility]IC[facility] Address: [address] [address] [place] [address] [employer] MEDICARE MEDICARE [facility] MEDICARE Address: [address] [address] [place] [address] Care Teams [employer] Supervisor Relationship Specialty Start Date End Date Jaime Carlos DO PCP - General Family Medicine 04/01/22
== END 2024-10-08 15:08 | disposition home or self-care (01) ==
LOC: ANHIMG 15:09
PROVIDERS: PCP Family Medicine; Visit Provider Family Medicine
DX: Z12.31 Encounter for screening mammogram for malignant neoplasm of breast (principal)
CPT/HCPCS: 77063; 77067

== ENCOUNTER 2024-12-21 09:50 | Outpatient (CLI) | payer MEDICARE, SELFPAY ==
--- OUTSIDE RECORDS SUMMARY | 2024-12-22 11:40 | XMS_ITS | Clinical Summary ---
Author Organization [facility] Address [address] [place] [address] Care Team Providers Care Laboratory Operations Coordinator Name Role Phone Jaime Carlos Primary Care Provider [phone] Allergies No known active allergies Medications lovastatin [...] 10/30/2012 Surgical History Surgery Date Site/Laterality Comments [place] DELIVERY ONLY Section - (Added by TW Conv) [place] TONSILLECTOMY PRIMARY/SEC ONDARY <AGE 12 Tonsillectomy - [...] on file Legal Sex Female 9:52 PM OPERATIONS INTELLIGENCE Gender Identity Female 09/12/2020 5:20 AM OPERATIONS INTELLIGENCE Sexual Orientation Straight 09/12/2020 5: 20 AM OPERATIONS INTELLIGENCE Obstetrics History Para Term AB IAB SAB Ectopic Multiple Livin g Live Births 2 2 2 1 2 Date Outcome GA Total Labor Labor/2nd/3rd Weight Sex Type Anes PTL Yesica A1 A5 Name Clin Term CS-Un spec Living Term CS-Un spec Last Filed Vital Signs Vital Sign Reading Time Taken Comments Blood Pressure 174/82 06/26/2024 11:54 AM OPERATIONS INTELLIGENCE Pulse 52 03/24/2015 10:07 AM CDT Temperature 36.3 C (97.4 F) 12/12/2020 11:26 AM CDT Respiratory Rate - - Oxygen Saturation - - Inhaled Oxygen Concentration - - Weight 54.9 kg (121 lb) 06/26/2024 11:19 AM OPERATIONS INTELLIGENCE Height 166.1 cm (5' 5.4 ) 06/26/2024 11:19 AM CS T Body Mass Index 19.89 06/26/2024 11:19 AM OPERATIONS INTELLIGENCE Plan of Treatment Health Maintenance Due Date Last Done Comments Colon Cancer Screening-Colonoscopy 1950 Depression Screening 1952 Fall Risk Assessment 1950 Hepatitis C Screening 1950 DTaP/Tdap/Td Vaccine (1 - Tdap) 1963 Hepatitis B Screening 1970 Zoster Vaccine (2 of 2) 06/04/2019 04/09/2019 Osteoporosis Screening-Bone Density Scan 08/29/2021 08/29/2019, 01/23/2014 Breast Cancer Screening-Mammogram 05/20/2023 05/20/2022, 04/08/2021, 02/09/2019, Additional history exists Influenza Vaccine (Season Ended) 2025 05/24/2019, 05/11/2018, 05/22/2017, Additional history exists Well Visit 65+ 06/26/2025 06/26/2024 Pneumococcal vaccine 65+ Completed 10/10/2018, 08/23 Procedures Procedure Name Priority Date/Time Associated Diagnosis Comments SCREENING MAMMOGRAM BILATERAL W VITALIY Schedule Routine, Read Routine (OP Routine) 05/20/2022 1:29 PM CDT Screening mammogram, encounter for DEXA AXIAL SKELETON BONE DENSITY 1 OR MORE SITES Schedule Routine, Read Routine (OP Routine) 08/29/2019 11:27 AM OPERATIONS INTELLIGENCE Post-menopausal from Last 3 Months or Most [...] compared to prior imaging studies performed at [facility] on 02/06/2018, 02/09/2019 and 04/08/2021. There are [...] compared to prior imaging studies performed at [facility] on 02/06/2018, 02/09/2019 and 04/08/2021. There are scattered areas of fibroglandular density. There is no suspicious abnormality in either breast. Impression: There is no mammographic evidence of malignancy. Annual screening mammography is recommended. OVERALL FINAL ASSESSMENT: BI-RADS CATEGORY 1: Negative. us Self Screening Mammogram IMG MAMMO PROCEDURES Fi nal Result * Dexa Axial Skeleton Bone Density 1 or 2 Site (08/29/2019 11:27 AM OPERATIONS INTELLIGENCE) Anatomical Region Laterality Modality Body N/A Radiographic Nazia ging Narrative 08/29/2019 2:13 PM OPERATIONS INTELLIGENCE Patient Name: Umm Rodriguez Date of : 1950 Date of scan: 08/29/2019 Bone mineral density was performed on a [employer] Discovery Densitometer. Machine Cross-calibration and Precision studies [...] by the International Society of Clinical Densitometry. [id number] us Mirakalia Conrad MD IMG DXA PROCED URES Final Result from Last 3 Months or Most Recently Relevant to Health Maintenance Insurance [facility] MEDICARE ADVANTAGE [facility]1983 MEDICARE UHC MEDICARE ADVANTAGE Care Teams Laboratory Operations Coordinator Relationship Specialty Start Date End Date Jaime Carlos DO PCP - General Family Medicine 04/01/22
--- OUTSIDE RECORDS SUMMARY | 2024-12-22 11:40 | XMS_ITS | Referral Summary ---
Author Organization [facility] Address [address] [place] [address] Care Team Providers Care Stock Clerk Name Role Phone KevJaime costa Primary Care Provider [phone] Allergies No known active allergies Medications lovastatin [...] on file Legal Sex Female 9:52 PM STENCIL INSPECTOR Gender Identity Female 09/12/2020 5:20 AM STENCIL INSPECTOR Sexual Orientation Straight 09/12/2020 5: 20 AM STENCIL INSPECTOR Last Filed Vital Signs Vital Sign Reading Time Taken Comments Blood Pressure 174/82 06/26/2024 11:54 AM STENCIL INSPECTOR Pulse 52 03/24/2015 10:07 AM CDT Temperature 36.3 C (97.4 F) 12/12/2020 11:26 AM CDT Respiratory Rate - - Oxygen Saturation - - Inhaled Oxygen Concentration - - Weight 54.9 kg (121 lb) 06/26/2024 11:19 AM STENCIL INSPECTOR Height 166.1 cm (5' 5.4 ) 06/26/2024 11:19 AM CS T Body Mass Index 19.89 06/26/2024 11:19 AM STENCIL INSPECTOR Plan of Treatment Not on file Procedures Procedure Name Priority Date/Time Associated Diagnosis Comments SCREENING MAMMOGRAM BILATERAL W VITALIY Schedule Routine, Read Routine (OP Routine) 05/20/2022 1:29 PM CDT Screening mammogram, encounter for DEXA AXIAL SKELETON BONE DENSITY 1 OR MORE SITES Schedule Routine, Read Routine (OP Routine) 08/29/2019 11:27 AM STENCIL INSPECTOR Post-menopausal from Last 3 Months or Most [...] compared to prior imaging studies performed at [facility] on 02/06/2018, 02/09/2019 and 04/08/2021. There [...] compared to prior imaging studies performed at [facility] on 02/06/2018, 02/09/2019 and 04/08/2021. There [...] 1 or 2 Site (08/29/2019 11:27 AM STENCIL INSPECTOR) Anatomical Region Laterality Modality Body N/A Radiographic Nazia ging Narrative 08/29/2019 2:13 PM STENCIL INSPECTOR Patient Name: Umm Rodriguez Date of : 1950 Date of scan: 08/29/2019 Bone mineral density was performed on a [employer] Discovery Densitometer. Machine Cross-calibration and Precision studies [...] by the International Society of Clinical Densitometry. [id number] us Mira Alissa Conrad MD IMG DXA PROCED URES Final Result from Last 3 Months or Most Recently Relevant to Health Maintenance Insurance [facility] MEDICARE ADVANTAGE [employer] MEDICARE [employer] MEDICARE ADVANTAGE Care Teams Stock Clerk Relationship Specialty Start Date End Date Jaime Carlos DO PCP - General Family Medicine 04/01/22
--- OUTSIDE RECORDS SUMMARY | 2024-12-22 11:40 | XMS_ITS | Clinical Summary ---
Author Organization [facility] Address [address] [place] [address] Care Team Providers Care Interactive Marketing Strategist Name Role Phone Pb Irving MD Primary Care Provider [phone] Source Comments [facility],non-owned Affiliates and Associated Physician Practices is amultiple site organization consisting of ambulatory clinics and hospital sitesin [place], [place], [place] and [place]. This disclosure is being madepursuant to the Care Everywhere program and may not contain all information available regarding this patient. Last updated 18.[facility] Allergies No known active allergies Immunizations Immunization Administration Dates Next Due FLU VACCINE QUAD IIV4 PF ID 05/25/2016 INFLUENZA VACCINE, HIGH-DOSE , QUADR. (FLUZONE HIGH-DOSE QUADRIVALENT; 65Y+), 0.7 ML (HD-IIV4) 05/11/2018 Social History Tobacco Use Types Packs/Day Years Used Date Smoking Tobacco: Never Assessed Comments Unknown Sex and Gender Information Value Date Recorded Sex Assigned at Not on file Legal Sex Female 12:23 PM CDT Gender Identity Not on file Sexual Orientation [...] SCREENING 1950 LIPID TESTING 1950 MAMMOGRAM 1950 HEPATITIS C SCREENING 05/25/1970 DTAP/TDAP/TD VACCINES (1 - Tdap) 1971 PNEUMOCOCCAL VACCINE 50+ (1 of 1 - PCV) 2002 ZOSTER VACCINE (1 of 2) 2002 COVID-19 VACCINE (1 - 2023-2 5 season) 2024 DEPRESSION SCREENING 08/22/2024 INFLUENZA VACCINE (Season Ended) 2025 05/11/2018, 05/25/2016 Respiratory Syncytial Virus (RSV) Vaccine Pt: or [...] complete this topic MENINGOCOCCAL (Group B) VACCINE SHARED DECISION-MAKING Aged Out No longer eligible based on patient's age to complete this topic MENINGOCOCCAL GROUPS A/C/Y/W VACCINE Aged Out No longer eligible b ased on patient's age to complete this topic Insurance MEDICARE MEDICARE Care Teams Interactive Marketing Strategist Relationship Specialty Start Date End Date Pb Irving MD [address] [place] [address] PCP - General Internal Medicine 05/25/16
== END 2024-12-21 09:51 | disposition home or self-care (01) ==
PROVIDERS: PCP Family Medicine; Visit Provider Otolaryngology
DX: H90.3 Sensorineural hearing loss, bilateral (principal); H93.19 Tinnitus, unspecified ear; H93.8X9 Other specified disorders of ear, unspecified ear; R42 Dizziness and giddiness
CPT/HCPCS: 92557; 92567

== ENCOUNTER 2025-03-05 08:00 | Outpatient (RCR) | payer MEDICARE, SELFPAY | END 2025-03-05 23:59 | disposition home or self-care (01) | LOC: ANHAUDIO 08:00 | PROVIDERS: PCP Family Medicine; Visit Provider Family Medicine | DX: Z46.1 Encounter for fitting and adjustment of hearing aid (principal) | CPT/HCPCS: 99199; V5256 ==